=== PATIENT | female | born 1940 | race Caucasian/White ===

== ENCOUNTER 2016-11-27 11:19 | Inpatient (IN) | payer MEDICARE ==
[2016-11-21 09:37] VITALS: Ht 157.5 cm; Wt 115.7 kg
[2016-11-21 10:16] VITALS: BP_SYST 142; RESP 20; TEMP 97.5
[~2016-11-27] VITALS: Ht 157.5 cm; Wt 115.7 kg
[2016-11-27] VITALS (22 sets, daily range): BP systolic 98–139; RESP 15–26; TEMP 97.2–98
[~2016-11-27 11:19] MED LIST: ACETAMINOPHEN 1,000 MG/100 ML IV ONE; BACITRACIN 50,000 UNITS INJ IRRIG ONE; CEFAZOLIN 2,000 MG in SODIUM CHLORIDE 0.9% 100 ML IV ONE; DILAUDID 1 MG/ML AMP IV ONE; FENTANYL 100 MCG/2 ML AMP IV ONE; GLYCOPYRROLATE 0.2 MG/ML VIAL IV ONE; LIDOCAINE 2% SYR 5 ML IV ONE; METOPROLOL 5 MG/5 ML VIAL IV ONE; NEOSTIGMINE 10 MG/10 ML VIAL IV ONE; PHENYLEPHRINE 10 MG/ML VIAL IV ONE; PROPOFOL 20 ML PER ML IV ONE; ROCURONIUM 50 MG VIAL IV ONE; ROPIVACAINE 0.5% 139 MG, EPINEPHrine 1:1,000 0.2 MG, KETOROLAC INJ 30 MG, MORPHINE 10 MG SUBQ ONE; SUCCINYLCHOLINE 20 MG/ML VL IV ONE
[2016-11-27] MEDS ORDERED: Tranexamic Acid 100 MG in SODIUM CHLORIDE 0.9% 100 ML IV ONE ×4 (11:30)
[2016-11-27] MEDS ORDERED: LACT RINGERS 1,000 ML IV SCH ×2 (11:40→14:35)
[2016-11-27] MEDS ORDERED: MEPERIDINE 25 MG/ML IV ONE (11:40)
[2016-11-27] MEDS ORDERED: GLYCOPYRROLATE 0.2 MG/ML VIAL IV ONE (11:40)
[2016-11-27] MEDS ORDERED: LIDOCAINE 1% BUFFERED 1 ML SYR INTRADERM PRN (11:40)
[2016-11-27] MEDS ORDERED: MIDAZOLAM 2 MG/2 ML INJ IV ONE ×2 (11:40→12:27)
[2016-11-27] MEDS ORDERED: MIDAZOLAM 2 MG/2 ML INJ ONE (12:27)
[2016-11-27] MEDS ORDERED: BUPIVACA/EPI 0.5% 50ML EPIDURAL ONE (13:43)
[2016-11-27] MEDS ORDERED: MEPERIDINE 25 MG/ML IV PRN (14:20)
[2016-11-27] MEDS ORDERED: MORPHINE 2 MG/ML SYR IV PRN ×2 (14:20→14:35)
[2016-11-27] MEDS ORDERED: DILAUDID 1 MG/ML AMP IV PRN (14:20)
[2016-11-27] MEDS ORDERED: ONDANSETRON 4 MG VIAL IV PRN (14:20)
[2016-11-27] MEDS ORDERED: OXYCODONE 5 MG TAB PO PRN (14:20)
[2016-11-27] MEDS ORDERED: MORPHINE 4 MG/ML SYR IV PRN ×2 (14:20→14:35)
[2016-11-27] MEDS ORDERED: DIPHENHYDRAMINE 25 MG CAP PO PRN (14:35)
[2016-11-27] MEDS ORDERED: ACETAMINOPHEN 325 MG TAB PO PRN (14:35)
[2016-11-27] MEDS ORDERED: TEMAZEPAM 15 MG CAP PO PRN (14:35)
[2016-11-27] MEDS: ONDANSETRON 4 MG VIAL IV PRN (17:17)
[2016-11-27] MEDS: CEFAZOLIN 2,000 MG in SODIUM CHLORIDE 0.9% 100 ML IV SCH ×2 (17:21→23:05)
[2016-11-27] MEDS ORDERED: DOCUSATE SOD 100 MG CAP PO SCH (21:00)
[2016-11-27] MEDS: SENNA 8.6 MG TAB PO SCH (21:37)
[2016-11-27] MEDS: DOCUSATE SOD 100 MG CAP PO SCH (21:37)
[2016-11-27] MEDS: HYDROXYUREA 500 MG CAP PO SCH (21:37)
[2016-11-28] VITALS (7 sets, daily range): BP systolic 106–139; RESP 16–22; TEMP 97.6–98.8
[2016-11-28] MEDS: CEFAZOLIN 2,000 MG in SODIUM CHLORIDE 0.9% 100 ML IV SCH ×2 (05:24→12:24)
[2016-11-28] MEDS: FONDAPARINUX 2.5 MG SYR SUBQ SCH (05:25)
[2016-11-28] MEDS: ONDANSETRON 4 MG VIAL IV PRN ×2 (08:29→15:00)
[2016-11-28] MEDS: POLYETHYLENE GLYCOL 17 GM PACKET PO SCH (09:56)
[2016-11-28] MEDS: DOCUSATE SOD 100 MG CAP PO SCH ×2 (09:57→21:26)
[2016-11-28] MEDS: PRAVASTATIN 40 MG TAB PO SCH ×2 (09:57→21:26)
[2016-11-28] MEDS: SENNA 8.6 MG TAB PO SCH ×2 (09:57→21:26)
[2016-11-28] MEDS: MAG HYDROX 30 ML UDC PO SCH ×2 (09:57→21:26)
[2016-11-28] MEDS: HYDROXYUREA 500 MG CAP PO SCH ×2 (09:57→21:26)
[2016-11-28] MEDS ORDERED: PROMETHAZINE 25 MG/ML VIAL IV PRN (13:50)
[2016-11-28] MEDS ORDERED: FLEET ENEMA 132 ML BTL RECTAL PRN (15:40)
[2016-11-28] MEDS ORDERED: BISACODYL 10 MG SUPP RECTAL PRN (15:40)
[2016-11-28] MEDS: FAMOTIDINE 20 MG TAB PO SCH (21:26)
[2016-11-29] VITALS (8 sets, daily range): BP systolic 118–140; RESP 16–20; TEMP 97.9–99.9
[2016-11-29] MEDS: OXYCODONE/APAP 7.5/325 TAB PO PRN ×3 (01:26→14:53)
[2016-11-29] MEDS: FONDAPARINUX 2.5 MG SYR SUBQ SCH (06:15)
[2016-11-29] MEDS: MAG HYDROX 30 ML UDC PO SCH ×3 (08:00→20:00)
[2016-11-29] MEDS: DOCUSATE SOD 100 MG CAP PO SCH ×2 (08:53→20:14)
[2016-11-29] MEDS: POLYETHYLENE GLYCOL 17 GM PACKET PO SCH (08:53)
[2016-11-29] MEDS: FAMOTIDINE 20 MG TAB PO SCH ×2 (08:53→20:13)
[2016-11-29] MEDS: SENNA 8.6 MG TAB PO SCH ×2 (08:53→20:14)
[2016-11-29] MEDS: HYDROXYUREA 500 MG CAP PO SCH ×2 (08:53→20:14)
[2016-11-29] MEDS: PRAVASTATIN 40 MG TAB PO SCH (20:14)
[2016-11-30 02:45] VITALS: BP_SYST 100; TEMP 98.7
[2016-11-30] MEDS: OXYCODONE/APAP 7.5/325 TAB PO PRN ×3 (02:45→13:01)
[2016-11-30 02:46] VITALS: RESP 22
[2016-11-30] MEDS: FONDAPARINUX 2.5 MG SYR SUBQ SCH (05:45)
[2016-11-30] MEDS: MAG HYDROX 30 ML UDC PO SCH ×2 (07:19)
[2016-11-30] MEDS: POLYETHYLENE GLYCOL 17 GM PACKET PO SCH (07:19)
[2016-11-30 07:26] VITALS: BP_SYST 125; RESP 18; TEMP 98.6
[2016-11-30] MEDS: FAMOTIDINE 20 MG TAB PO SCH (07:42)
[2016-11-30] MEDS: SENNA 8.6 MG TAB PO SCH (07:42)
[2016-11-30] MEDS: DOCUSATE SOD 100 MG CAP PO SCH (07:42)
[2016-11-30] MEDS: HYDROXYUREA 500 MG CAP PO SCH (07:42)
[2016-11-30 09:46] VITALS: BP_SYST 125; RESP 18; TEMP 98.6
[2016-11-30 12:27] VITALS: BP_SYST 123; RESP 18; TEMP 98
== END 2016-11-30 13:21 | disposition home or self-care (01) | DRG 470 ==
LOC: SDS 11:19 → ENPENDDIS 11:19 → 2NO 15:21
PROVIDERS: ADMIT Internal Medicine; ATTEND Internal Medicine
PROC: 3E0T3CZ (ICD-10-PCS; 2016-11-27)
PROC: 0SRC0J9 Replacement of Right Knee Joint with Synthetic Substitute, Cemented, Open Approach (ICD-10-PCS; principal; 2016-11-27 12:10)
CPT/HCPCS: 80048; 85014; 85018; 85025; 86850; 86900; 86901; 94762; 94799